=== PATIENT | female | born 1980 | race Caucasian/White ===

== ENCOUNTER 2018-02-27 16:45 | Emergency (ER) | payer OTHER ==
[~2018-02-27] VITALS: Ht 157.5 cm; Wt 80.3 kg
[~2018-02-27 16:45] MED LIST: CYCL10 PO; HYDR1TAB94 PO; KETO10 PO; Norco 5-325 Ta1 EACH PO; OMEP20ER PO; Zofran8 MG PO
[2018-02-27] MEDS ORDERED: THYR60 PO (19:07)
[2018-02-27] MEDS ORDERED: Toradol10 MG PO (19:08)
[2018-02-27] MEDS ORDERED: HYDR1TAB94 PO (19:08)
[2018-02-27] MEDS ORDERED: Zantac150 MG PO (19:08)
[2018-02-27] MEDS ORDERED: RIZATRIPTAN10 MG PO (19:09)
[2018-02-27] MEDS ORDERED: HYDHCL25 PO (19:09)
[2018-02-27] MEDS ORDERED: BUSP15 PO (19:10)
[2018-02-27] MEDS ORDERED: Tizanidine HCl2 MG PO (19:10)
[2018-02-27] MEDS ORDERED: Prednisone20 MG PO (21:10)
[2018-02-27] MEDS ORDERED: LIDO700A20 TOP (21:10)
== END 2018-02-27 21:28 | disposition home or self-care (01) ==
LOC: ER 16:45
DX: M54.5 Low back pain (principal); F41.9 Anxiety disorder, unspecified; F32.9 Major depressive disorder, single episode, unspecified; E03.9 Hypothyroidism, unspecified; Z88.8 Allergy status to other drugs, medicaments and biological substances; Z79.899 Other long term (current) drug therapy
CPT/HCPCS: 72100; 96372; 99283-25; J1170

== ENCOUNTER 2018-03-13 19:56 | Emergency (ER) | payer OTHER ==
[~2018-03-13] VITALS: Ht 157.5 cm; Wt 61.2 kg
[~2018-03-13 19:56] MED LIST changes: +BUSP15 PO; +HYDHCL25 PO; +LIDO700A20 TOP; +Prednisone20 MG PO; +RIZATRIPTAN10 MG PO; +THYR60 PO; +Tizanidine HCl2 MG PO; +Toradol10 MG PO; +Zantac150 MG PO
== END 2018-03-13 20:50 | disposition home or self-care (01) ==
LOC: ER 19:56
DX: M54.5 Low back pain (principal); Z88.6 Allergy status to analgesic agent; Z79.899 Other long term (current) drug therapy; E03.9 Hypothyroidism, unspecified
CPT/HCPCS: 99283

== ENCOUNTER 2018-04-10 19:34 | Emergency (ER) | payer OTHER ==
[~2018-04-10] VITALS: Ht 157.5 cm; Wt 80.7 kg
[2018-04-10] MEDS ORDERED: Maxalt10 MG (20:16)
== END 2018-04-10 21:09 | disposition home or self-care (01) ==
LOC: ER 19:34
DX: S61.431A Puncture wound without foreign body of right hand, initial encounter (principal); W26.0XXA Contact with knife, initial encounter; Z88.6 Allergy status to analgesic agent; Z79.899 Other long term (current) drug therapy
CPT/HCPCS: 73130; 90471; 90714; 99283-25